=== PATIENT | female | born 1995 | race Hispanic/Latino ===

== ENCOUNTER 2021-03-20 03:56 | Emergency (ER) | payer OTHER ==
[~2021-03-20] VITALS: Ht 154.9 cm; Wt 75.8 kg
[2021-03-20] MEDS ORDERED: DICLOFENAC SODI75 MG PO (06:03)
== END 2021-03-20 06:15 | disposition home or self-care (01) ==
LOC: ED 03:56
DX: R10.9 Unspecified abdominal pain (principal)
CPT/HCPCS: 74177; 80053; 81001; 83690; 84703; 85025; 96375; 99284-25; J1885; J2405; Q9967

== ENCOUNTER 2021-09-11 17:12 | Emergency (ER) | payer OTHER ==
[~2021-09-11] VITALS: Ht 154.9 cm; Wt 70.3 kg
[~2021-09-11 17:12] MED LIST: DICLOFENAC SODI75 MG PO
[2021-09-11] MEDS ORDERED: TRAZODONE HCL50 MG PO (17:27)
--- NOTE | 2021-09-12 04:33 | EKG ---
[facility] [address] [facility] [place], [place] [address] Signed Normal sinus rhythm Normal ECG No previous ECGs available Confirmed by NIKKI NARANJO MD ([id number]) on 09/12/2021 4:33:21 AM Electronically Signed By: NIKKI NARANJO MD 09/12/21 0433 PATIENT NAME: VELASQUEZ NORMA RAM Electrocardiogram DATE OF : [birth year] PHYSICIAN: NIKKI NARANJO MD REPORT #: [id number] REPORT IS CONFIDENTIAL AND NOT TO BE RELEASED WITHOUT AUTHORIZATION
== END 2021-09-11 19:28 | disposition home or self-care (01) ==
LOC: ED 17:12
DX: R07.9 Chest pain, unspecified (principal); J06.9 Acute upper respiratory infection, unspecified; Z79.899 Other long term (current) drug therapy
CPT/HCPCS: 71045; 80048; 84484; 85025; 93005; 93010; 99285-25

== ENCOUNTER 2024-06-28 | Inpatient (IN) | payer OTHER, BC ==
[~2024-06-28] VITALS: Ht 154.9 cm; Wt 74.4 kg
[~2024-06-28] MED LIST changes: +NITROFURANTOIN100 M1 PO; +TRAZODONE HCL50 MG PO
[2024-06-28] MEDS ORDERED: LACTATED RINGER'S 1,000 ML IV SCH (00:01)
[2024-06-28] MEDS ORDERED: CALCIUM CARBONATE 500 MG CHEW PO PRN ×2 (00:01→18:30)
[2024-06-28] MEDS ORDERED: MAGNESIUM HYDROXIDE/AL HYDROX 30 ML CUP PO PRN ×2 (00:01→18:30)
[2024-06-28] MEDS ORDERED: miSOPROStoL 25 MCG TAB PV SCH (00:01)
[2024-06-28 00:24] VITALS: BP 118/82
[2024-06-28] MEDS ORDERED: OXYTOCIN/DEXTROSE 5% 20 UNITS/100 ML BAG IV SCH (00:45)
[2024-06-28 00:48] LABS: HEMATOCRIT 30.2 % (35.0-50.0); HEMOGLOBIN 9.8 g/dL (12.0-18.0); MCH 25.6 (27-36); MCHC 32.4 g/dl (30-36); MCV 79.1 fl (81-99); RBC 3.82 M/ul (4.3-5.7); RDW 17.9 (10.5-15.0)
[2024-06-28 01:11] LABS: AMPHETAMINES, URINE NEGATIVE (NEGATIVE); BARBITURATES, URINE NEGATIVE (NEGATIVE); BENZODIAZEPINE, URINE NEGATIVE (NEGATIVE); BUPRENORPHINE, URINE NEGATIVE (NEGATIVE); CANNABINOID, URINE POSITIVE (NEGATIVE); COCAINE, URINE NEGATIVE (NEGATIVE); ECSTASY, URINE NEGATIVE (NEGATIVE); FENTANYL, URINE NEGATIVE (NEGATIVE); METHADONE, URINE NEGATIVE (NEGATIVE); OPIATES, URINE NEGATIVE (NEGATIVE); OXYCODONE, URINE NEGATIVE (NEGATIVE); PHENCYCLIDINE, URINE NEGATIVE (NEGATIVE)
[2024-06-28 01:25] LABS: ABO O; ANTIBODY SCREEN NEGATIVE; RH POSITIVE
[2024-06-28] MEDS ORDERED: ondansetron HCL 4 MG/2 ML VIAL IV PRN ×2 (11:45→18:00)
[2024-06-28] MEDS ORDERED: fentaNYL citrate 100 MCG/2 ML VIAL ONE (11:50)
[2024-06-28] MEDS ORDERED: ROPIVACAINE 0.2% 200 ML BAG ONE (11:50)
[2024-06-28] MEDS ORDERED: LACTATED RINGER'S 500 ML IV PRN (12:00)
[2024-06-28] MEDS ORDERED: ROPIVACAINE 0.2% 200 ML BAG EPIDURAL SCH (12:00)
[2024-06-28] MEDS ORDERED: LACTATED RINGER'S 2,000 ML IV ONE (12:00)
[2024-06-28] MEDS ORDERED: ePHEDrine sulfate 5 MG/ML SYRINGE IV PRN (12:00)
--- NOTE | 2024-06-28 13:23 | PR ---
[facility] [address] [facility] [place], [place] [address] Signed Progress Notes IP Datetime Report Generated by CPRita: 06/28/2024 13:23 PROGRESS NOTES: [id number] Impression: Normal Progression of Labor; Reassuring Heart Rate Procedures: Artificial ROM; Sterile Vag Exam Plan: Continue Present Management VITAL SIGNS: [id number] Vital Signs: Reviewed; Within Normal Limits EXAM: [id number] Dilatation: 3.0 Effacement: 90 Station: -2 Contractions: q 1 to 3 min MEMBRANES: [id number] Comments: Comfortable after epidural. She is progressing well. Will continue. FETUS A: [id number] FHR Baseline: 140 Variability: Moderate 6-25bpm Accelerations: 15X15 FHR Category: Category II Presentation: Vertex FETUS B: [id number] Signing Physician: Leatha John MD Copies: ~ *Electronically Signed* 06/28/24 1323 LEATHA JOHN MD PATIENT NAME: NORMA GOULD PROGRESS NOTE DATE OF : [birth year] PHYSICIAN: LEATHA JOHN MD RPT #: [id number] REPORT IS CONFIDENTIAL AND NOT TO BE RELEASED WITHOUT AUTHORIZATION
[2024-06-28] MEDS ORDERED: dexmedeTOMIDine HCl 200 MCG/2 ML VIAL ONE (14:53)
[2024-06-28] MEDS ORDERED: LIDOCAINE HCL 2% 5 ML SDV ONE (14:54)
--- NOTE | 2024-06-28 15:08 | PR ---
[facility] [address] [facility] [place], [place] [address] Signed Progress Notes IP Datetime Report Generated by VENKAT: 06/28/2024 15:08 PROGRESS NOTES: [id number] Impression: Normal Progression of Labor Procedures: Intrauterine Pressure Catheter; Sterile Vag Exam Plan: Anesthesia Consult VITAL SIGNS: [id number] Vital Signs: Reviewed; Within Normal Limits EXAM: [id number] Dilatation: 3.5 Effacement: 90 Station: -2 Contractions: q 1 to 3 min MEMBRANES: [id number] Comments: Some progress but w/ variables. Will do amnioinfusion to see if this will help improve FHTs. Will continue close observation. FETUS A: [id number] FHR Baseline: 140 Variability: Moderate 6-25bpm Accelerations: 15X15 Decelerations: Variable FHR Category: Category II Presentation: Vertex FETUS B: [id number] Signing Physician: Leatha John MD Copies: ~ *Electronically Signed* 06/28/24 1508 LEATHA JOHN MD PATIENT NAME: GOULDRONNORMA PROGRESS NOTE DATE OF : [birth year] PHYSICIAN: LEATHA JOHN MD RPT #: [id number] REPORT IS CONFIDENTIAL AND NOT TO BE RELEASED WITHOUT AUTHORIZATION
[2024-06-28] MEDS ORDERED: LACTATED RINGER'S 1,000 ML XX SCH (15:15)
[2024-06-28] MEDS ORDERED: OXYTOCIN/0.9 % SODIUM CHLORIDE 500 ML IV ONE (17:49)
[2024-06-28] MEDS ORDERED: TRANEXAMIC ACID IN NACL,ISO-OS 100 ML IV ONE (17:50)
[2024-06-28] MEDS ORDERED: miSOPROStoL 200 MCG TAB PO ONE (17:56)
[2024-06-28] MEDS ORDERED: DIPHENOXYLATE/ATROPINE 1 EA TAB PO ONE (17:58)
[2024-06-28] MEDS ORDERED: LIDOCAINE 2% VISCOUS 6 ML SYR TOP ONE (18:30)
[2024-06-28] MEDS ORDERED: HYDROCODONE/ACETA 5/325 TAB PO PRN (18:30)
[2024-06-28] MEDS ORDERED: HYDROCORTISONE ACETATE 25 MG SUPP PR PRN (18:30)
[2024-06-28] MEDS ORDERED: WITCH HAZEL/GLYCERIN 1 EA PAD TOP PRN (18:30)
[2024-06-28] MEDS ORDERED: MAGNESIUM HYDROXIDE 30 ML UDC PO PRN (18:30)
[2024-06-28] MEDS ORDERED: IBUPROFEN 600 MG TAB PO PRN (18:30)
[2024-06-28] MEDS ORDERED: OXYTOCIN/0.9 % SODIUM CHLORIDE 500 ML IV SCH (18:30)
[2024-06-28] MEDS ORDERED: ACETAMINOPHEN 325 MG TAB PO PRN (18:30)
[2024-06-28] MEDS ORDERED: BENZOCAINE 60 ML AEROSOL TOP PRN (18:30)
[2024-06-28] MEDS ORDERED: MEASLES,MUMPS&RUBELLA VACCINE 1 VIAL VIAL SUB-Q SCH (18:30)
[2024-06-28] MEDS ORDERED: CEFAZOLIN SODIUM 2 GM/20 ML SYR IV SCH (18:30)
[2024-06-28] MEDS ORDERED: OXYCODONE HCL 5 MG TAB PO PRN (18:30)
[2024-06-28] MEDS ORDERED: ACETAMINOPHEN 500 MG TAB ONE (18:48)
[2024-06-28] MEDS ORDERED: ACETAMINOPHEN 500 MG TAB PO ONE (18:53)
[2024-06-28 19:08] LABS: HEMATOCRIT 30.7 % (35.0-50.0); HEMOGLOBIN 9.6 g/dL (12.0-18.0); MCH 25.5 (27-36); MCHC 31.4 g/dl (30-36); MCV 81.2 fl (81-99); RBC 3.78 M/ul (4.3-5.7); RDW 18.1 (10.5-15.0)
[2024-06-28 19:15] LABS: INR 1.03 (0.80-1.30); PROTIME 13.1 Sec (11.2-14.2)
[2024-06-28] MEDS ORDERED: SENNOSIDES/DOCUSATE 1 EA TAB PO SCH (21:00)
[2024-06-29 05:42] LABS: HEMATOCRIT 23.7 % (35.0-50.0); HEMOGLOBIN 7.7 g/dL (12.0-18.0); MCH 25.4 (27-36); MCHC 32.3 g/dl (30-36); MCV 78.6 fl (81-99); RBC 3.01 M/ul (4.3-5.7); RDW 17.9 (10.5-15.0)
--- NOTE | 2024-06-29 07:24 | PR ---
[facility] [address] [place], [place] [address] Signed PP Progress Notes Datetime Report Generated by CPN: 06/29/2024 07:24 SUBJECTIVE: [id number] Pain: Within Normal Limits Vital Signs: [id number] Vital Signs: Reviewed; Within Normal Limits Cardiovascular: Not Done Respiratory: Not Done Abdomen/Uterus: Abnormal Lochia: Normal Vulva/Perineum: Not Done Breasts: Not Done CVA Tenderness: Not Done Extremities: Normal Incision: Not Applicable Progress: Abnormal Exam Comments: Fundus firm, NT @ U-1. H/H 7.7/23.7, WBC 16.6, plat 213k IMPRESSION/PLAN/PROCEDURES: [id number] Impression: Normal Progression Other Impression: Bleeding doing well Other Plans: stop suction to Rosi Progress Notes: Doing well. Her bleeding is doing well with the Rosi. Will stop suction and observe. Anemia--will see how she tolerates this when she can be up. Signing Physician: Leatha John MD Copies: ~ *Electronically Signed* 06/29/24 07 LEATHA JOHN MD PATIENT NAME: NORMA GOULD PROGRESS NOTE DATE OF : [birth year] PHYSICIAN: LEATHA JOHN MD RPT #: [id number] REPORT IS CONFIDENTIAL AND NOT TO BE RELEASED WITHOUT AUTHORIZATION
--- NOTE | 2024-06-30 08:56 | PR ---
[facility] [address] [facility] [place], [place] [address] Signed PP Progress Notes Datetime Report Generated by CPN: 06/30/2024 08:56 SUBJECTIVE: [id number] Pain: Within Normal Limits Pain Comments: tolerating ambulation Vital Signs: [id number] Vital Signs: Reviewed; Within Normal Limits Cardiovascular: Not Done Respiratory: Not Done Abdomen/Uterus: Abnormal Lochia: Normal Vulva/Perineum: Not Done Breasts: Not Done CVA Tenderness: Not Done Extremities: Normal Incision: Not Applicable Progress: Abnormal Exam Comments: Fundus firm, NT @ U-2. IMPRESSION/PLAN/PROCEDURES: [id number] Impression: Normal Progression Other Impression: Anemia, pp hemorrhage Plan: Discharge Other Plans: stop suction to Rosi Procedures: Rubella Progress Notes: Doing well. She is tolerating her anemia well. She is having some issues w/ and will have consult prior to D/C. Signing Physician: Leatha John MD Copies: ~ *Electronically Signed* 06/30/24 0856 LEATHA JOHN MD PATIENT NAME: NORMA GOULD PROGRESS NOTE DATE OF : [birth year] PHYSICIAN: LEATHA JOHN MD RPT #: [id number] REPORT IS CONFIDENTIAL AND NOT TO BE RELEASED WITHOUT AUTHORIZATION
== END 2024-06-30 12:20 | disposition home or self-care (01) | DRG 806 ==
LOC: FBC
PROVIDERS: ADMIT Obstetrics & Gynecology; ATTEND Obstetrics & Gynecology
PROC: 10E0XZZ Delivery of Products of Conception, External Approach (ICD-10-PCS; principal; 2024-06-28)
PROC: 0KQM0ZZ Repair Perineum Muscle, Open Approach (ICD-10-PCS; 2024-06-28)
PROC: 3E0R3BZ Introduction of Anesthetic Agent into Spinal Canal, Percutaneous Approach (ICD-10-PCS; 2024-06-28)
PROC: 00HU33Z Insertion of Infusion Device into Spinal Canal, Percutaneous Approach (ICD-10-PCS; 2024-06-28)
PROC: 10907ZC Drainage of Amniotic Fluid, Therapeutic from Products of Conception, Via Natural or Artificial Opening (ICD-10-PCS; 2024-06-28)
DX: O76 Abnormality in fetal heart rate and rhythm complicating labor and delivery (principal); O72.1 Other immediate postpartum hemorrhage; Z37.0 Single live birth; O99.324 Drug use complicating childbirth; O90.81 Anemia of the puerperium; O70.1 Second degree perineal laceration during delivery; Z3A.38 38 weeks gestation of pregnancy; O69.81X0 Labor and delivery complicated by cord around neck, without compression, not applicable or unspecified; O36.5930 Maternal care for other known or suspected poor fetal growth, third trimester, not applicable or unspecified; F12.90 Cannabis use, unspecified, uncomplicated
CPT/HCPCS: 01960; 36415; 80307; 85027; 85060; 85384; 85610; 85730; 86850; 86900; 86901; 90707; A9270; J0690; J2001; J7121